=== PATIENT | female | born 2000 | race Caucasian/White ===

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

== ENCOUNTER 2018-08-16 19:04 | Emergency (ER) | payer SELFPAY ==
[~2018-08-16] VITALS: Ht 144.8 cm; Wt 50.0 kg
[~2018-08-16 19:04] MED LIST: IBUP-1561 PO; MAGN400O19 PO; ONDA8TAB14 PO
[2018-08-16 19:34] VITALS: BP 129/72; PULSE 98; RESP 16; Ht 144.8 cm; Wt 50.0 kg
== END 2018-08-16 21:34 | disposition left against medical advice (07) ==
LOC: FTE 19:04
DX: Z53.21 Procedure and treatment not carried out due to patient leaving prior to being seen by health care provider (principal)